=== PATIENT | female | born 1965 | race Caucasian/White ===

== ENCOUNTER → 2019-10-12 | Outpatient (CLI) | payer BC, OTHER | LOC: RAD 08:59 | DX: Z12.31 Encounter for screening mammogram for malignant neoplasm of breast (principal) ==

== ENCOUNTER → 2019-10-19 | Outpatient (CLI) | payer BC, OTHER | LOC: ULTRA 10-18 09:08 | DX: N60.02 Solitary cyst of left breast (principal); N60.01 Solitary cyst of right breast ==